=== PATIENT | female | born 1990 | race African-American/Black ===

== ENCOUNTER 2021-09-24 05:30 | Emergency (ER) | payer OTHER ==
[~2021-09-24] VITALS: Ht 154.9 cm; Wt 86.0 kg
[2021-09-24] MEDS ORDERED: IBUPROFEN 600MG TABLET PO STA (06:42)
[2021-09-24 07:18] VITALS: BP 129/81
[2021-09-24 09:56] LABS: CLARITY URINE CLEAR (CLEAR); COLOR URINE YELLOW (YELLOW); KETONES URINE NEGATIVE (NEGATIVE); LEUKOCYTE ESTERASE URINE 1+ (NEGATIVE); NITRITE URINE NEGATIVE (NEGATIVE); OCCULT BLOOD URINE 1+ (NEGATIVE); PH URINE 5.5 (4.5-8.0); PROTEIN URINE NEGATIVE (NEGATIVE); SPECIFIC GRAVITY URINE 1.017 (1.005-1.030); UROBILINOGEN URINE 0.2 E.U./dL (0.2-1.0)
[2021-09-24] MEDS ORDERED: CEPH500T MT (10:28)
[2021-09-24] MEDS ORDERED: IBUP-2029 MT (10:28)
== END 2021-09-24 10:39 | disposition home or self-care (01) ==
LOC: ER 05:30
DX: N30.00 Acute cystitis without hematuria (principal)
CPT/HCPCS: 81003; 81025; 99283

== ENCOUNTER 2022-04-27 08:03 | Emergency (ER) | payer OTHER ==
[~2022-04-27] VITALS: Ht 167.6 cm; Wt 75.0 kg
[~2022-04-27 08:03] MED LIST: CEPH500T MT; IBUP-2029 MT
[2022-04-27 08:06] VITALS: BP 142/120
[2022-04-27] MEDS ORDERED: SODIUM CHLORIDE 0.9% 1,000 ML IV ONE (08:30)
[2022-04-27 10:33] LABS: BASOPHILS % 0.8 % (0.0-2.0); EOSINOPHILS % 0.9 % (0.0-5.0); HEMATOCRIT. 41.7 % (36.0-48.0); HEMOGLOBIN. 14.1 g/dL (12.0-16.0); LYMPHOCYTES % 25.2 % (20.0-50.0); MEAN CORPUSCULAR HEMOGLOBIN 31.1 pg (28.0-32.0); MEAN CORPUSCULAR VOLUME 91.8 fL (81.0-99.0); MONOCYTES % 6.7 % (2.0-8.0); NEUTROPHILS % 66.4 % (40.0-76.0); PLATELET 360 x1000/uL (130-400); RED BLOOD CELL COUNT 4.54 mill/uL (4.2-5.4); RED CELL DISTRIBUTION WIDTH 13.4 % (11.6-14.6)
[2022-04-27 10:44] LABS: CHLORIDE 107 mEq/L (98-107)
[2022-04-27 10:54] LABS: B-HCG QUANTITATIVE < 1 mIU/mL (<3)
[2022-04-27 11:05] LABS: CLARITY URINE CLOUDY (CLEAR); COLOR URINE RED (YELLOW); KETONES URINE NEGATIVE (NEGATIVE); LEUKOCYTE ESTERASE URINE TRACE (NEGATIVE); NITRITE URINE NEGATIVE (NEGATIVE); OCCULT BLOOD URINE 3+ (NEGATIVE); PROTEIN URINE 1+ (NEGATIVE); UROBILINOGEN URINE 0.2 E.U./dL (0.2-1.0)
== END 2022-04-27 11:35 | disposition home or self-care (01) ==
LOC: ER 08:07
DX: N93.9 Abnormal uterine and vaginal bleeding, unspecified (principal)
CPT/HCPCS: 36415; 76830; 76856; 80053; 81003; 81025; 84702; 85025; 86850; 86900; 86901; 99284; J7030

== ENCOUNTER 2022-10-24 12:04 | Emergency (ER) | payer OTHER ==
[~2022-10-24] VITALS: Ht 154.9 cm; Wt 94.0 kg
[2022-10-24 12:09] VITALS: BP 133/83; PULSE 97; RESP 18; TEMP 98.3; O2SAT 100
[2022-10-24 12:31] LABS: BASOPHILS % 0.9 % (0.0-2.0); HEMATOCRIT. 38.5 % (36.0-48.0); HEMOGLOBIN. 13.2 g/dL (12.0-16.0); LYMPHOCYTES % 37.5 % (20.0-50.0); MEAN CORPUSCULAR HEMOGLOBIN 30.9 pg (28.0-32.0); MEAN CORPUSCULAR VOLUME 90.3 fL (81.0-99.0); MEAN PLATELET VOLUME 7.5 fl (7.4-10.4); MONOCYTES % 8.9 % (2.0-8.0); NEUTROPHILS % 51.7 % (40.0-76.0); PLATELET 397 x1000/uL (130-400); RED BLOOD CELL COUNT 4.27 mill/uL (4.2-5.4); RED CELL DISTRIBUTION WIDTH 14.6 % (11.6-14.6)
[2022-10-24 12:40] LABS: CHLORIDE 107 mEq/L (98-107)
[2022-10-24 14:04] LABS: CLARITY URINE CLEAR (CLEAR); COLOR URINE YELLOW (YELLOW); KETONES URINE NEGATIVE (NEGATIVE); LEUKOCYTE ESTERASE URINE NEGATIVE (NEGATIVE); NITRITE URINE NEGATIVE (NEGATIVE); OCCULT BLOOD URINE 1+ (NEGATIVE); PROTEIN URINE NEGATIVE (NEGATIVE); SPECIFIC GRAVITY URINE 1.007 (1.005-1.030); UROBILINOGEN URINE 0.2 E.U./dL (0.2-1.0)
[2022-10-24 15:03] LABS: B-HCG QUANTITATIVE 12710 mIU/mL (<3)
[2022-10-24] MEDS ORDERED: ACET-2708 MT (15:21)
== END 2022-10-24 15:47 | disposition home or self-care (01) ==
LOC: ER 12:04
DX: O20.0 Threatened abortion (principal); Z3A.01 Less than 8 weeks gestation of pregnancy
CPT/HCPCS: 36415; 76801; 80053; 81003; 81025; 84702; 85025; 86850; 86900; 99284

== ENCOUNTER 2022-10-28 05:13 | Emergency (ER) | payer OTHER ==
[~2022-10-28] VITALS: Ht 154.9 cm; Wt 95.0 kg
[~2022-10-28 05:13] MED LIST changes: +ACET-2708 MT
[2022-10-28 05:50] VITALS: TEMP 98.2; O2SAT 100
[2022-10-28] MEDS ORDERED: ONDANSETRON 4MG ODT PO ONE (08:00)
[2022-10-28 08:28] LABS: BASOPHILS % 0.4 % (0.0-2.0); EOSINOPHILS % 0.4 % (0.0-5.0); HEMATOCRIT. 40.4 % (36.0-48.0); HEMOGLOBIN. 13.5 g/dL (12.0-16.0); LYMPHOCYTES % 22.6 % (20.0-50.0); MEAN CORPUSCULAR HEMOGLOBIN 30.5 pg (28.0-32.0); MEAN PLATELET VOLUME 7.9 fl (7.4-10.4); MONOCYTES % 6.6 % (2.0-8.0); PLATELET 390 x1000/uL (130-400); RED BLOOD CELL COUNT 4.44 mill/uL (4.2-5.4); RED CELL DISTRIBUTION WIDTH 14.1 % (11.6-14.6)
[2022-10-28 08:29] LABS: CHLORIDE 106 mEq/L (98-107)
[2022-10-28 08:51] LABS: B-HCG QUANTITATIVE 33229 mIU/mL (<3)
[2022-10-28 10:10] VITALS: BP 122/48; PULSE 80; RESP 20
== END 2022-10-28 10:11 | disposition home or self-care (01) ==
LOC: ER 05:20
DX: O20.0 Threatened abortion (principal); Z3A.01 Less than 8 weeks gestation of pregnancy; O21.9 Vomiting of pregnancy, unspecified; I49.9 Cardiac arrhythmia, unspecified
CPT/HCPCS: 80053; 81025; 84702; 85025; 86850; 86900; 86901; 36415; 76801; 76817; 93005; 99284; Q0162; Z7610; 99285

== ENCOUNTER 2022-12-07 01:31 | Emergency (ER) | payer OTHER ==
[~2022-12-07] VITALS: Ht 154.9 cm; Wt 92.3 kg
[2022-12-07 02:07] VITALS: TEMP 98.8; O2SAT 99
[2022-12-07 02:30] LABS: CLARITY URINE CLEAR (CLEAR); COLOR URINE YELLOW (YELLOW); GLUCOSE URINE NEGATIVE (NEGATIVE); KETONES URINE NEGATIVE (NEGATIVE); LEUKOCYTE ESTERASE URINE TRACE (NEGATIVE); NITRITE URINE NEGATIVE (NEGATIVE); OCCULT BLOOD URINE 2+ (NEGATIVE); PH URINE 6.5 (4.5-8.0); PROTEIN URINE TRACE (NEGATIVE); SPECIFIC GRAVITY URINE 1.028 (1.005-1.030)
[2022-12-07 02:33] LABS: BACTERIA URINE NONE SEEN; SQUAMOUS EPITHELIAL CELL URINE 2+ /lpf (RARE/1+); YEAST URINE NONE SEEN
[2022-12-07 02:44] LABS: WBC URINE 0-2 /hpf (0-2)
[2022-12-07 02:46] LABS: UCG SCREEN POSITIVE
[2022-12-07 03:31] LABS: BASOPHILS % 0.2 % (0.0-2.0); CHLORIDE 107 mEq/L (98-107); EOSINOPHILS % 0.7 % (0.0-5.0); HCG SCREEN POSITIVE; HEMATOCRIT. 36.9 % (36.0-48.0); HEMOGLOBIN. 12.4 g/dL (12.0-16.0); INDEX HEMOLYSI 1 (1-3); INDEX ICTERIC 1 (1-4); INDEX LIPEMIC 1 (1-3); LYMPHOCYTES % 26.9 % (20.0-50.0); MEAN CORPUSCULAR HEMOGLOBIN 30.3 pg (28.0-32.0); MEAN CORPUSCULAR HGB CONC 33.6 g/dL (31.0-37.0); MEAN PLATELET VOLUME 7.9 fl (7.4-10.4); MONOCYTES % 6.8 % (2.0-8.0); NEUTROPHILS % 65.4 % (40.0-76.0); PLATELET 347 x1000/uL (130-400); POTASSIUM 3.6 mEq/L (3.5-5.1); RED CELL DISTRIBUTION WIDTH 14.8 % (11.6-14.6); SODIUM 138 mEq/L (136-145); WHITE BLOOD COUNT 8.5 x1000/uL (4.5-11.0)
[2022-12-07 03:40] LABS: ALANINE AMINOTRANSFERASE 20 IU/L (13-61); ALBUMIN 2.9 g/dL (3.4-5.0); ASPARTATE AMINOTRANSFERASE 13 IU/L (15-37); BILIRUBIN TOTAL 0.7 mg/dL (0.1-1.0); CALCIUM 8.3 mg/dL (8.5-10.1); CARBON DIOXIDE 22 mEq/L (21-32); CREATININE 0.6 mg/dL (0.6-1.3); GLUCOSE 104 mg/dL (70-105); UREA NITROGEN BLOOD 7 mg/dL (7-21)
[2022-12-07] MEDS ORDERED: ONDANSETRON HCL 4MG/2ML INJ IV NR (04:13)
[2022-12-07] MEDS ORDERED: MAGNESIUM/ALUMINUM HYDROXIDE/SIMETHICONE 30ML UDC PO NR (04:13)
[2022-12-07] MEDS ORDERED: FAMOTIDINE 20MG/2ML VIAL IV NR (04:13)
[2022-12-07] MEDS: SODIUM CHLORIDE 0.9% 1,000 ML IV NR ×2 (04:43→05:57)
[2022-12-07 06:06] VITALS: BP 121/62; PULSE 96; RESP 15
[2022-12-07] MEDS ORDERED: ONDA4TAB50 MT (06:14)
== END 2022-12-07 06:48 | disposition home or self-care (01) ==
LOC: ER 01:31
DX: O21.0 Mild hyperemesis gravidarum (principal); Z3A.12 12 weeks gestation of pregnancy; Z20.822 Contact with and (suspected) exposure to COVID-19
CPT/HCPCS: 80053; 81003; 81025; 84703; 85025; 87804 ×2; 36415; 96361; 96374; 96375; 99284; 87426; J3490; J2405; C9803; Z7610 ×3

== ENCOUNTER 2023-01-02 12:32 | Emergency (ER) | payer OTHER ==
[~2023-01-02] VITALS: Ht 154.9 cm; Wt 95.0 kg
[~2023-01-02 12:32] MED LIST changes: +ONDA4TAB50 MT
[2023-01-02 12:55] VITALS: BP 125/70; PULSE 112; RESP 16; TEMP 97.9; O2SAT 99
[2023-01-02 13:08] LABS: BASOPHILS % 0.5 % (0.0-2.0); EOSINOPHILS % 0.7 % (0.0-5.0); HEMATOCRIT. 35.6 % (36.0-48.0); HEMOGLOBIN. 12.4 g/dL (12.0-16.0); LYMPHOCYTES % 18.9 % (20.0-50.0); MEAN CORPUSCULAR HEMOGLOBIN 31.3 pg (28.0-32.0); MEAN CORPUSCULAR HGB CONC 34.9 g/dL (31.0-37.0); MEAN CORPUSCULAR VOLUME 89.7 fL (81.0-99.0); MEAN PLATELET VOLUME 7.6 fl (7.4-10.4); MONOCYTES % 6.2 % (2.0-8.0); NEUTROPHILS % 73.7 % (40.0-76.0); PLATELET 326 x1000/uL (130-400); RED BLOOD CELL COUNT 3.97 mill/uL (4.2-5.4); RED CELL DISTRIBUTION WIDTH 14.2 % (11.6-14.6); WHITE BLOOD COUNT 10.5 x1000/uL (4.5-11.0)
[2023-01-02] MEDS ORDERED: ONDANSETRON HCL 4MG/2ML INJ IV STA (13:09)
[2023-01-02] MEDS ORDERED: SODIUM CHLORIDE 0.9% 1,000 ML IV ONE (13:15)
[2023-01-02 14:52] LABS: CALCIUM 9.3 mg/dL (8.5-10.1); CHLORIDE 107 mEq/L (98-107); INDEX HEMOLYSI 1 (1-3); INDEX ICTERIC 1 (1-4); INDEX LIPEMIC 1 (1-3); POTASSIUM 3.4 mEq/L (3.5-5.1); SODIUM 135 mEq/L (136-145)
[2023-01-02 15:13] LABS: ALANINE AMINOTRANSFERASE 25 IU/L (13-61); ALBUMIN 2.8 g/dL (3.4-5.0); ASPARTATE AMINOTRANSFERASE 14 IU/L (15-37); B-HCG QUANTITATIVE 42530 mIU/mL (<3); BILIRUBIN TOTAL 0.6 mg/dL (0.1-1.0); CARBON DIOXIDE 24 mEq/L (21-32); CREATININE 0.7 mg/dL (0.6-1.3); GLUCOSE 107 mg/dL (70-105); PROTEIN TOTAL 6.9 g/dL (6.0-8.3); UREA NITROGEN BLOOD 6 mg/dL (7-21)
[2023-01-02 16:48] LABS: CLARITY URINE CLOUDY (CLEAR); COLOR URINE DARK YELLOW (YELLOW); GLUCOSE URINE NEGATIVE (NEGATIVE); KETONES URINE TRACE (NEGATIVE); LEUKOCYTE ESTERASE URINE TRACE (NEGATIVE); NITRITE URINE NEGATIVE (NEGATIVE); OCCULT BLOOD URINE 2+ (NEGATIVE); PROTEIN URINE TRACE (NEGATIVE); SPECIFIC GRAVITY URINE 1.031 (1.005-1.030)
[2023-01-02 16:50] LABS: SQUAMOUS EPITHELIAL CELL URINE 1+ /lpf (RARE/1+); WBC URINE 0-2 /hpf (0-2); YEAST URINE NONE SEEN
[2023-01-02 17:23] LABS: BACTERIA URINE 1+
== END 2023-01-02 18:36 | disposition left against medical advice (07) ==
LOC: ER 12:37
DX: O21.1 Hyperemesis gravidarum with metabolic disturbance (principal); O26.892 Other specified pregnancy related conditions, second trimester; E86.0 Dehydration; R53.1 Weakness; R42 Dizziness and giddiness; Z3A.16 16 weeks gestation of pregnancy
CPT/HCPCS: 99284; 76805; 80053; 81003; 81025; 84702; 83690; 85025; 36415; J7030

== ENCOUNTER 2023-01-16 11:25 | Emergency (ER) | payer OTHER ==
[~2023-01-16] VITALS: Ht 160 cm; Wt 81.0 kg
[2023-01-16 11:36] VITALS: O2SAT 100
[2023-01-16 12:15] LABS: BASOPHILS % 0.4 % (0.0-2.0); EOSINOPHILS % 0.9 % (0.0-5.0); HEMATOCRIT. 33.5 % (36.0-48.0); HEMOGLOBIN. 11.6 g/dL (12.0-16.0); LYMPHOCYTES % 18.9 % (20.0-50.0); MEAN CORPUSCULAR HEMOGLOBIN 31.1 pg (28.0-32.0); MEAN CORPUSCULAR HGB CONC 34.5 g/dL (31.0-37.0); MEAN CORPUSCULAR VOLUME 90.2 fL (81.0-99.0); MEAN PLATELET VOLUME 7.5 fl (7.4-10.4); MONOCYTES % 8.6 % (2.0-8.0); NEUTROPHILS % 71.2 % (40.0-76.0); PLATELET 309 x1000/uL (130-400); RED BLOOD CELL COUNT 3.72 mill/uL (4.2-5.4); RED CELL DISTRIBUTION WIDTH 14.4 % (11.6-14.6)
[2023-01-16 12:27] LABS: CLARITY URINE CLEAR (CLEAR); COLOR URINE YELLOW (YELLOW); GLUCOSE URINE NEGATIVE (NEGATIVE); KETONES URINE NEGATIVE (NEGATIVE); LEUKOCYTE ESTERASE URINE TRACE (NEGATIVE); NITRITE URINE NEGATIVE (NEGATIVE); OCCULT BLOOD URINE 1+ (NEGATIVE); PH URINE 6.5 (4.5-8.0); PROTEIN URINE NEGATIVE (NEGATIVE); SPECIFIC GRAVITY URINE 1.014 (1.005-1.030)
[2023-01-16] MEDS ORDERED: ONDANSETRON 4MG ODT PO ONE (12:30)
[2023-01-16 12:39] LABS: CHLORIDE 107 mEq/L (98-107); INDEX HEMOLYSI 1 (1-3); INDEX ICTERIC 1 (1-4); INDEX LIPEMIC 1 (1-3); POTASSIUM 3.4 mEq/L (3.5-5.1); SODIUM 136 mEq/L (136-145)
[2023-01-16 12:57] LABS: SQUAMOUS EPITHELIAL CELL URINE 3+ /lpf (RARE/1+)
[2023-01-16 12:58] LABS: BACTERIA URINE 1+; WBC URINE 0-2 /hpf (0-2)
[2023-01-16 12:59] LABS: RBC URINE 0-2 /hpf (0-2)
[2023-01-16 13:02] LABS: ALANINE AMINOTRANSFERASE 20 IU/L (13-61); ALBUMIN 2.5 g/dL (3.4-5.0); ASPARTATE AMINOTRANSFERASE 12 IU/L (15-37); B-HCG QUANTITATIVE 21535 mIU/mL (<3); BILIRUBIN TOTAL 0.7 mg/dL (0.1-1.0); CALCIUM 8.3 mg/dL (8.5-10.1); CARBON DIOXIDE 24 mEq/L (21-32); CREATININE 0.5 mg/dL (0.6-1.3); GLUCOSE 89 mg/dL (70-105); PROTEIN TOTAL 6.5 g/dL (6.0-8.3); UREA NITROGEN BLOOD 6 mg/dL (7-21)
[2023-01-16] MEDS ORDERED: SODIUM CHLORIDE 0.9% 1,000 ML IV ONE (15:15)
[2023-01-16] MEDS ORDERED: METOCLOPRAMIDE HCL 10MG/2ML VIAL IV ONE (15:15)
[2023-01-16 17:51] VITALS: BP 127/83; PULSE 96; RESP 20; TEMP 98.4
== END 2023-01-16 17:57 | disposition left against medical advice (07) ==
LOC: ER 11:25
DX: O21.0 Mild hyperemesis gravidarum (principal); O23.42 Unspecified infection of urinary tract in pregnancy, second trimester; N39.0 Urinary tract infection, site not specified; Z3A.18 18 weeks gestation of pregnancy
CPT/HCPCS: 80053; 81003; 81025; 84702; 83690; 85025; 36415; 76815; 93005; 96374; 99285; J2765; J7030; Z7610 ×4